=== PATIENT | female | born 1995 | race Two or more races ===

== ENCOUNTER 2023-08-29 03:42 | Day surgery (SDC) | payer OTHER ==
[2023-08-22 13:46] VITALS: BMI 20.3
[2023-08-29] MEDS ORDERED: THROMBIN (BOVINE) 5,000 UNIT VIAL TP ONE (07:36)
[2023-08-29] MEDS ORDERED: FENTANYL CITRATE/PF 50 MCG/ML VIAL ONE ×4 (07:51→11:11)
[2023-08-29] MEDS ORDERED: GLYCOPYRROLATE 0.2 MG/1 ML VIAL ONE ×2 (07:51→15:06)
[2023-08-29] MEDS ORDERED: MIDAZOLAM HCL 2 MG/2 ML SINGLE DOSE VIAL ONE (07:51)
[2023-08-29] MEDS ORDERED: ROCURONIUM BROMIDE 50 MG/5 ML SYRINGE ONE ×2 (07:51→10:09)
[2023-08-29] MEDS ORDERED: PROPOFOL 40 ML ONE (07:51)
[2023-08-29] MEDS ORDERED: SUCCINYLCHOLINE CHLORIDE 200 MG/10 ML SYRINGE ONE (07:52)
[2023-08-29] MEDS: ceFAZolin SODIUM 1 GM VIAL IVPB ONE ×2 (08:20)
[2023-08-29] MEDS ORDERED: PROPOFOL 20 ML ONE ×3 (08:30→10:03)
[2023-08-29] MEDS: BUPIVACAINE HCL/PF 0.5% (5 MG/ML) 30 ML VIAL IJ ONE (08:47)
[2023-08-29] MEDS: LIDOCAINE 1%/EPI 1:100000 (20 ML MULTI DOSE VIAL) IJ ONE ×2 (08:47)
[2023-08-29] MEDS ORDERED: ONDANSETRON 4 MG/2 ML VIAL IVPUSH PRN (09:08)
[2023-08-29] MEDS ORDERED: oxyCODONE HCL 5 MG TABLET PO PRN (09:08)
[2023-08-29] MEDS ORDERED: LACTATED RINGERS SOLUTION 1,000 ML IV SCH ×2 (09:15→10:30)
[2023-08-29] MEDS ORDERED: NEOSTIGMINE METHYLSULFATE 0.5 MG/1 ML - 10 ML MDV ONE (10:14)
[2023-08-29 11:29] VITALS: RESP 18
[2023-08-29 12:49] VITALS: TEMP 97.8
[2023-08-29] MEDS: CALCITRIOL 0.25 MCG CAPSULE (FP) PO SCH (13:21)
[2023-08-29] MEDS: CALCIUM (OYSTER SHELL) 500 MG TABLET (FP) PO SCH (13:22)
[2023-08-29 14:12] VITALS: BP 110/70; PULSE 70
[2023-08-29] MEDS ORDERED: ONDANSETRON 4 MG/2 ML VIAL ONE (15:06)
[2023-08-29] MEDS ORDERED: PHENYLEPHRINE HCL 10 MG/1 ML SINGLE DOSE VIAL ONE (15:06)
[2023-08-29] MEDS ORDERED: LIDOCAINE HCL/PF 2% SDV 5ML VIAL ONE (15:06)
[2023-08-29] MEDS ORDERED: ceFAZolin SODIUM 1 GM VIAL ONE (15:06)
[2023-08-29] MEDS ORDERED: DEXAMETHASONE SOD PHOSPHATE 4 MG/1 ML VIAL ONE (15:06)
== END 2023-08-29 15:15 | disposition home or self-care (01) ==
LOC: JASU-SURG 03:42
PROVIDERS: ATTEND Surgery
PROC: 0GTK0ZZ Resection of Thyroid Gland, Open Approach (ICD-10-PCS; principal; 2023-08-29 08:00)
DX: C73 Malignant neoplasm of thyroid gland (principal)
CPT/HCPCS: 81025; 88307-TC; 94760